=== PATIENT | female | born 1945 | race Caucasian/White ===

== ENCOUNTER 2020-03-23 07:44 | Outpatient (CLI) | payer MEDICARE, SELFPAY ==
[2020-03-23 08:15] LABS: Anion Gap 11 mmol/L (8-16); Blood Urea Nitrogen 17 mg/dL (7-17); Calcium 9.3 mg/dL (8.4-10.2); Carbon Dioxide 26 mmol/L (22-30); Chloride 94 mmol/L (98-107); Estimated Glomerular Filt Rate 54; Glucose 101 mg/dL (65-105); Potassium 3.9 mmol/L (3.4-5.0); Sodium 131 mmol/L (137-145)
== END 2020-03-23 07:45 | disposition home or self-care (01) ==
LOC: ANHLAB 07:47
PROVIDERS: PCP Family Medicine; Visit Provider Physician Assistant
DX: E87.1 Hypo-osmolality and hyponatremia (principal)
CPT/HCPCS: 36415; 80048

== ENCOUNTER 2020-04-10 12:49 | Outpatient (CLI) | payer MEDICARE, SELFPAY ==
--- NOTE | ~2020-04-10 | DEXA_ITS ---
Bone Density Report Name: Jessy Martines Age: 74 Sex: Female Ethnicity: White Date of : 1945 Indication: monitoring treatment; parental hip fracture; height loss; prior fracture; Referring Provider: Marito Couch Study: Bone densitometry was performed. Exam Date: April 10, 2020 Accession number: [id number] Bone Density: Region BMD T-score Z-score Classification AP Spine (L1, L3) 1.066 0.5 2.9 Normal Femoral Neck (Left) 0.670 -1.6 0.5 Osteopenia Total Hip (Left) 0.883 -0.5 1.4 Normal Total Hip Bilateral Avg 0.905 -0.3 1.6 Normal Femoral Neck (Right) 0.734 -1.0 1.1 Normal Total Hip (Right) 0.925 -0.1 1.7 Normal World Health Organization criteria for BMD impression classify patients as: Normal (T-score at or above -1.0), Osteopenia (T-score between -1.0 and -2.5), or Osteoporosis (T-score at or below -2.5). 10-year Fracture Risk: FRAX not reported because: Treated for osteoporosis Previous Exams: Region Exam Age BMD T-score BMD Change BMD Change Date g/cm2 vs Baseline vs Previous AP Spine(L1, L3) 04/10/2020 74 1.066 0.5 0.068(6.8%)* 0.139(14.9%)# 11/10/2017 72 0.928 -0.8 -0.071(-7.1%)# -0.071(-7.1%)# 10/15/2012 67 0.999 -0.1 Total Hip(Left) 04/10/2020 74 0.883 -0.5 0.064(7.8%)* 0.016(1.8%)# 11/10/2017 72 0.867 -0.6 0.048(5.9%)# 0.048(5.9%)10/15/2012 67 0.819 -1.0 Total Hip(Right) 04/10/2020 74 0.925 -0.1 0.105(12.8%)* 0.047(5.3%)11/10/2017 72 0.879 -0.5 0.059(7.1%)# 0.059(7.1%)10/15/2012 67 0.820 -1.0 *Denotes significance at 95% confidence level, LSC for AP Spine = 0.022 g/cm2, LSC for Total Hip = 0.027 g/cm2 Clinical Information Provided by Patient: Has had a low trauma fracture Parent has had a hip fracture Is being treated for osteoporosis Has used the following medications: Boniva (i.e. ibandronate), Vitamin D, Calcium Patient maximum height was 66 Menopause Age: 43 Drinks caffeinated beverages Onset of menses at age 11 Number of children 2 Impression: The patient has low bone mass, based on the Left Femoral Neck T-score. The patient has risk factors, including: parental hip fracture, previous fracture. No significant bone loss was observed. Discussion: PATIENT UNDER TREATMENT WITH NO SIGNIFICANT BMD LOSS SINCE LAST EXAM. In an untreated patient, BMD typically declines with age. A lack of decline or gain is usually a sign that treatment is efficacious an
== END 2020-04-10 12:50 | disposition home or self-care (01) ==
PROVIDERS: PCP Family Medicine; Visit Provider Family Medicine
DX: Z78.0 Asymptomatic menopausal state (principal); M85.852 Other specified disorders of bone density and structure, left thigh
CPT/HCPCS: 77080

== ENCOUNTER 2020-09-11 07:28 | Outpatient (CLI) | payer MEDICARE, SELFPAY ==
[2020-09-11 07:58] LABS: Hemoglobin 12.4 g/dL (12.0-15.0); Mean Corpuscular HGB Conc 34.4 g/dl (32-36); Mean Corpuscular Hemoglobin 30.4 pg (26-34); Mean Corpuscular Volume 88.2 fl (80-100); Platelet Count Result 339 k/mm3 (150-375); Red Blood Count 4.08 M/mm3 (4.2-5.4); Red Cell Distribution Width 12.5 % (11.5-14.5); White Blood Count 7.2 K/mm3 (4.5-10.0)
[2020-09-11 08:02] LABS: Add Urine Microscopic? YES; Appearance Urine Clear (Clear); Bacteria Urine 2+ /hpf; Bilirubin Urine Negative (Negative); Blood Urine Negative (Negative); Color Urine Straw (Yellow); Glucose Urine UA Negative (Negative); Ketones Urine Negative (Negative); Leukocyte Esterase Ur 1+ LEU/UL (NEGATIVE); Mucus Urine Rare /lpf; Nitrate Urine Negative (Negative); Protein Urine Negative (Negative); RBC Urine 0-2 /hpf (0-2); Specific Grav Ur 1.009 (1.001-1.035); Squamous Epithelial Cell Urine Moderate /hpf (Few); Urobilinogen Urine Negative mg/dL (<2.0)
[2020-09-11 08:11] LABS: Alanine Aminotransferase 28 U/L (4-35); Albumin Level 4.2 g/dL (3.5-5.1); Alkaline Phosphatase 57 U/L (38-126); Anion Gap 8 mmol/L (8-16); Aspartate Amino Transferase 29 U/L (14-36); Bilirubin,Total 0.5 mg/dL (0.2-1.3); Blood Urea Nitrogen 24 mg/dL (7-17); Calcium 9.7 mg/dL (8.4-10.2); Carbon Dioxide 29 mmol/L (22-30); Chloride 96 mmol/L (98-107); Cholesterol 167 mg/dL (0-200); Estimated Glomerular Filt Rate 54; Glucose 119 mg/dL (65-105); HDL Direct 56 mg/dL; Sodium 133 mmol/L (137-145); Triglycerides 140 mg/dL (<150)
[2020-09-11 08:25] LABS: LDL Cholesterol Direct 91 mg/dL
[2020-09-11 08:41] LABS: Thyroid Stimulating Hormone 0.883 uIU/mL (0.465-4.680)
== END 2020-09-11 07:29 | disposition home or self-care (01) ==
PROVIDERS: PCP Family Medicine; Visit Provider Family Medicine
DX: I10 Essential (primary) hypertension (principal); E78.2 Mixed hyperlipidemia
CPT/HCPCS: 36415; 80053; 80061; 81001; 84443; 85027

== ENCOUNTER 2020-11-15 07:53 | Outpatient (CLI) | payer MEDICARE, SELFPAY ==
[2020-11-15 09:41] LABS: Hemoglobin A1C 6.2 % (<5.7)
== END 2020-11-15 07:54 | disposition home or self-care (01) ==
PROVIDERS: PCP Family Medicine; Visit Provider Physician Assistant
DX: R73.01 Impaired fasting glucose (principal)
CPT/HCPCS: 36415; 83036

== ENCOUNTER 2021-04-09 08:37 | Outpatient (CLI) | payer MEDICARE, SELFPAY ==
[2021-04-09 08:55] LABS: Basophils Percent Auto 0.4 % (0.2-1.2); Eosinophils Absolute Auto 0.2 K/mm3 (0-0.3); Eosinophils Percent Auto 3.4 % (0-4.4); Hematocrit 36.7 % (37.0-47.0); Hemoglobin 12.5 g/dL (12.0-15.0); Immature Granulocyte Absolute 0.04 K/mm3 (0.00-0.031); Immature Granulocyte Percent A 0.6 % (0-0.5); Lymphocytes Absolute Auto 2.07 K/mm3 (0.9-3.2); Lymphocytes Percent Auto 30.4 % (18.3-44.2); Mean Corpuscular HGB Conc 34.1 g/dl (32-36); Mean Corpuscular Hemoglobin 30.4 pg (26-34); Mean Corpuscular Volume 89.3 fl (80-100); Mean Platelet Volume 8.3 fl (7.4-10.4); Monocytes Absolute Auto 0.6 K/mm3 (0.1-0.6); Monocytes Percent Auto 8.4 % (2.6-8.5); Neutrophils Absolute Auto 3.9 K/mm3 (1.3-6.7); Neutrophils Percent Auto 56.8 % (45.5-73.1); Platelet Count Result 354 k/mm3 (150-375); Red Blood Count 4.11 M/mm3 (4.2-5.4); Red Cell Distribution Width 12.7 % (11.5-14.5); White Blood Count 6.8 K/mm3 (4.5-10.0)
[2021-04-09 09:10] LABS: Alanine Aminotransferase 27 U/L (4-35); Albumin Level 4.6 g/dL (3.5-5.1); Alkaline Phosphatase 64 U/L (38-126); Anion Gap 11 mmol/L (8-16); Aspartate Amino Transferase 33 U/L (14-36); Bilirubin,Total 0.5 mg/dL (0.2-1.3); Blood Urea Nitrogen 21 mg/dL (7-17); Carbon Dioxide 25 mmol/L (22-30); Chloride 89 mmol/L (98-107); Estimated Glomerular Filt Rate 54; Glucose 103 mg/dL (65-110); Potassium 3.9 mmol/L (3.4-5.0); Sodium 125 mmol/L (137-145)
[2021-04-09 09:36] LABS: Hemoglobin A1C 6.2 % (<5.7)
[2021-04-09 09:52] LABS: Iron 104 ug/dL (37-170)
[2021-04-09 10:02] LABS: Percent Iron Saturation 28 % (20-50)
== END 2021-04-09 08:38 | disposition home or self-care (01) ==
PROVIDERS: PCP Family Medicine; Visit Provider Physician Assistant
DX: D50.9 Iron deficiency anemia, unspecified (principal); R73.01 Impaired fasting glucose; I10 Essential (primary) hypertension
CPT/HCPCS: 36415; 80053; 82728; 83036; 83540; 83550; 85025

== ENCOUNTER 2021-06-11 09:04 | Outpatient (CLI) | payer MEDICARE, SELFPAY ==
[2021-06-11 10:33] LABS: Anion Gap 10 mmol/L (8-16); Blood Urea Nitrogen 25 mg/dL (7-17); Calcium 10.5 mg/dL (8.4-10.2); Carbon Dioxide 27 mmol/L (22-30); Chloride 94 mmol/L (98-107); Estimated Glomerular Filt Rate 48; Glucose 95 mg/dL (65-110); Potassium 4.5 mmol/L (3.4-5.0); Sodium 131 mmol/L (137-145)
== END 2021-06-11 09:05 | disposition home or self-care (01) ==
PROVIDERS: PCP Family Medicine; Visit Provider Physician Assistant
DX: E87.1 Hypo-osmolality and hyponatremia (principal)
CPT/HCPCS: 36415; 80048

== ENCOUNTER 2021-07-22 08:34 | Outpatient (CLI) | payer MEDICARE, SELFPAY ==
[2021-07-22 09:37] LABS: Anion Gap 11 mmol/L (8-16); Blood Urea Nitrogen 25 mg/dL (7-17); Carbon Dioxide 26 mmol/L (22-30); Chloride 94 mmol/L (98-107); Estimated Glomerular Filt Rate 54; Glucose 97 mg/dL (65-110); Potassium 3.7 mmol/L (3.4-5.0); Sodium 131 mmol/L (137-145)
== END 2021-07-22 08:35 | disposition home or self-care (01) ==
PROVIDERS: PCP Family Medicine; Visit Provider Physician Assistant
DX: E83.52 Hypercalcemia (principal); E87.1 Hypo-osmolality and hyponatremia
CPT/HCPCS: 36415; 80048

== ENCOUNTER 2021-10-29 07:20 | Outpatient (CLI) | payer MEDICARE, SELFPAY ==
[2021-10-29 07:57] LABS: Basophils Percent Auto 0.6 % (0.2-1.2); Eosinophils Absolute Auto 0.3 K/mm3 (0-0.3); Eosinophils Percent Auto 4.1 % (0-4.4); Hematocrit 37.8 % (37.0-47.0); Immature Granulocyte Absolute 0.04 K/mm3 (0.00-0.031); Immature Granulocyte Percent A 0.6 % (0-0.5); Lymphocytes Absolute Auto 2.25 K/mm3 (0.9-3.2); Lymphocytes Percent Auto 34.4 % (18.3-44.2); Mean Corpuscular HGB Conc 34.4 g/dl (32-36); Mean Corpuscular Hemoglobin 30.5 pg (26-34); Mean Corpuscular Volume 88.7 fl (80-100); Mean Platelet Volume 8.7 fl (7.4-10.4); Monocytes Absolute Auto 0.5 K/mm3 (0.1-0.6); Monocytes Percent Auto 8.1 % (2.6-8.5); Neutrophils Absolute Auto 3.4 K/mm3 (1.3-6.7); Neutrophils Percent Auto 52.2 % (45.5-73.1); Platelet Count Result 360 k/mm3 (150-375); Red Blood Count 4.26 M/mm3 (4.2-5.4); Red Cell Distribution Width 12.6 % (11.5-14.5); White Blood Count 6.5 K/mm3 (4.5-10.0)
[2021-10-29 08:06] LABS: Add Urine Microscopic? YES; Appearance Urine Clear (Clear); Bilirubin Urine Negative (Negative); Blood Urine Negative (Negative); Color Urine Yellow (Yellow); Glucose Urine UA Negative (Negative); Ketones Urine Negative (Negative); Leukocyte Esterase Ur Trace LEU/UL (NEGATIVE); Nitrate Urine Negative (Negative); Protein Urine Negative (Negative); RBC Urine 0-2 /hpf (0-2); Specific Grav Ur 1.011 (1.001-1.035); Squamous Epithelial Cell Urine Few /hpf (Few); Urobilinogen Urine Negative mg/dL (<2.0); WBC Urine 0-3 /hpf (0-3)
[2021-10-29 08:09] LABS: Alanine Aminotransferase 27 U/L (4-35); Albumin Level 4.5 g/dL (3.5-5.1); Alkaline Phosphatase 64 U/L (38-126); Anion Gap 9 mmol/L (8-16); Aspartate Amino Transferase 36 U/L (14-36); Bilirubin,Total 0.6 mg/dL (0.2-1.3); Blood Urea Nitrogen 21 mg/dL (7-17); Calcium 9.4 mg/dL (8.4-10.2); Carbon Dioxide 27 mmol/L (22-30); Chloride 95 mmol/L (98-107); Cholesterol 165 mg/dL (0-200); Estimated Glomerular Filt Rate 54; Glucose 98 mg/dL (65-110); HDL Direct 62 mg/dL; Potassium 4.1 mmol/L (3.4-5.0); Sodium 131 mmol/L (137-145); Triglycerides 82 mg/dL (<150)
[2021-10-29 08:12] LABS: Iron 110 ug/dL (37-170)
[2021-10-29 08:12] LABS: Hemoglobin A1C 5.7 % (<5.7)
[2021-10-29 08:20] LABS: LDL Cholesterol Direct 69 mg/dL
[2021-10-29 08:21] LABS: Percent Iron Saturation 28 % (20-50)
== END 2021-10-29 07:21 | disposition home or self-care (01) ==
PROVIDERS: PCP Family Medicine; Visit Provider Physician Assistant
DX: D50.9 Iron deficiency anemia, unspecified (principal); R73.01 Impaired fasting glucose; M85.80 Other specified disorders of bone density and structure, unspecified site; K21.9 Gastro-esophageal reflux disease without esophagitis; E78.5 Hyperlipidemia, unspecified; I10 Essential (primary) hypertension
CPT/HCPCS: 36415; 80053; 80061; 81001; 82728; 83036; 83540; 83550; 84443; 85025

== ENCOUNTER 2022-04-16 08:36 | Outpatient (CLI) | payer MEDICARE, SELFPAY ==
[2022-04-16 19:03] LABS: Alanine Aminotransferase 28 U/L (6-35); Alkaline Phosphatase 64 U/L (38-126); Anion Gap 16 mmol/L (8-16); Aspartate Amino Transferase 28 U/L (14-36); Bilirubin,Total 0.5 mg/dL (0.2-1.3); Blood Urea Nitrogen 24 mg/dL (7-17); Calcium 9.8 mg/dL (8.4-10.2); Carbon Dioxide 24 mmol/L (22-30); Chloride 92 mmol/L (98-107); Estimated Glomerular Filt Rate 43; Glucose 104 mg/dL (65-110); Potassium 4.6 mmol/L (3.4-5.0); Sodium 132 mmol/L (137-145)
[2022-04-16 19:44] LABS: Hemoglobin A1C 5.8 % (<5.7)
== END 2022-04-16 08:37 | disposition home or self-care (01) ==
PROVIDERS: PCP Family Medicine; Visit Provider Physician Assistant
DX: R73.01 Impaired fasting glucose (principal); I10 Essential (primary) hypertension; R82.90 Unspecified abnormal findings in urine
CPT/HCPCS: 36415; 80053; 83036; 87086; 87088

== ENCOUNTER → 2022-06-30 15:35 | Outpatient (CLI) | payer MEDICARE, SELFPAY ==
--- NOTE | ~2022-06-30 | DEXA_ITS ---
Bone Density Report Name: EDILSON MENDOZA Age: 76 Sex: Female Ethnicity: White Date of : 1945 Indication: osteopenia; parental hip fracture; height loss; prior fracture; postmenopausal Referring Provider: ROBERT ENAMORADO Study: Bone densitometry was performed. Exam Date: June 30, 2022 Accession number: [id number] There is hypertrophic degenerative change of the lumbar spine, which results in higher than expected spine bone mineral density measurements. These spine BMD and T score and Z score measurements are not reflective of the patient's true general bone mineral density. Bone Density: Region BMD T-score Z-score Classification AP Spine (L1-L4) 1.180 1.2 3.8 Normal Femoral Neck (Left) 0.670 -1.6 0.6 Osteopenia Total Hip (Left) 0.845 -0.8 1.2 Normal Femoral Neck (Right) 0.735 -1.0 1.2 Normal Total Hip (Right) 0.888 -0.4 1.5 Normal Total Hip Mean 0.867 -0.6 1.4 Normal World Health Organization criteria for BMD impression classify patients as: Normal (T-score at or above -1.0), Osteopenia (T-score between -1.0 and -2.5), or Osteoporosis (T-score at or below -2.5). 10-year Fracture Risk(1): Major Osteoporotic Fracture 31% Hip Fracture 17% Reported Risk Factors: [place] (), Neck BMD=0.670, BMI=30.4, previous fracture, parental fracture (1) FRAX(R) Version 3.08. Fracture probability calculated for an untreated patient. Fracture probability may be lower if the patient has received treatment. Previous Exams: Region Exam Age BMD T-score BMD Change BMD Change Date g/cm2 vs Baseline vs Previous AP Spine(L1-L4) 06/30/2022 76 1.180 1.2 0.266* 0.266* 09/17/2007 61 0.915 -1.2 Total Hip(Left) 06/30/2022 76 0.845 -0.8 0.046* 0.046* 09/17/2007 61 0.799 -1.2 Total Hip(Right) 06/30/2022 76 0.888 -0.4 0.073* 0.073* 09/17/2007 61 0.814 -1.0 *Denotes significance at 95% confidence level, LSC for AP Spine = 0.022 g/cm2, LSC for Total Hip = 0.027 g/cm2 Clinical Information Provided by Patient: Has had a low trauma fracture Parent has had a hip fracture Has used the following medications: Calcium, MTV Patient maximum height was 66.0 Menopause Age: 43 No regular weight bearing exercise Drinks caffeinated beverages Onset of menses at age 9 Number of children 2 Impression: The patient has low bone mass, based on the Left Femoral Neck T-score. The patient has a
== END ==
PROVIDERS: PCP Family Medicine; Visit Provider Physician Assistant
DX: M81.0 Age-related osteoporosis without current pathological fracture (principal); M85.852 Other specified disorders of bone density and structure, left thigh
CPT/HCPCS: 77080

== ENCOUNTER 2022-07-17 12:25 | Outpatient (CLI) | payer MEDICARE, SELFPAY ==
--- NOTE | ~2022-07-17 | US_ITS ---
US soft tissue head and neck 07/17/2022 13:40 Indication: Localized swelling of the left forehead Procedure: High-resolution Limited ultrasound of the left forehead Comparison: No prior studies for comparison. Findings: Normal heterogeneous soft tissues without focal solid or cystic mass. There is contour irre gularity to the underlying skull which may account for the palpable finding. Impression: 1: Normal soft tissues of the left forehead in the area of palpable concern without discrete mass. 2: Contour irregularity to the underlying skull at the area of palpable concern which likely account s for the clinical finding. Consider correlation with CT. Reviewed, dictated and finalized at location A. CTURAL ENGINEER Impression: 1: Normal soft tissues of the left forehead in the area of palpable concern wit hout discrete mass. 2: Contour irregularity to the underlying skull at the area of palpable concer n which likely accounts for the clinical finding. Consider correlation with CT.
== END 2022-07-17 12:26 | disposition home or self-care (01) ==
PROVIDERS: PCP Family Medicine; Visit Provider Physician Assistant
DX: R22.0 Localized swelling, mass and lump, head (principal)
CPT/HCPCS: 76536

== ENCOUNTER 2022-08-20 13:00 | Outpatient (CLI) | payer MEDICARE, SELFPAY ==
--- NOTE | ~2022-08-20 | CT_ITS ---
EXAMINATION: CT brain wo con DATE: 08/20/2022 13:20 INDICATION: Forehead lump, left side. Trauma 6 weeks ago. TECHNIQUE: Computed tomography (CT) of the head was performed without intravenous contrast. The mA wa s adjusted according to patient size. Iterative reconstruction technique was employed. Exam dose: 60 5.33 mGy-cm total exam DLP. COMPARISON: 06/06/2019 CT brain FINDINGS: Stable approximately 4 x 7 mm lucent skull lesion high over the parietal convexity on the left parasa gittal area, stable since 06/06/2019. Stable approximately 7.7 mm lucency of the right parasagittal frontal bone high over the convexity, u nchanged since 06/06/2019. 5.8 x 9.9 mm lucent lesion of the left parietal bone, there is measured 5 x 8.7 mm on 05/29/2019. Approximately 8 x 16 mm lytic lesion of the left frontal bone, with scalloping of the inner table and partial destruction of the outer table Differential diagnosis includes multiple myeloma and metastatic disease in this 76-year-old female. Included paranasal sinuses and mastoid air cells are normally developed and aerated. There is mildly prominent cerebral volume loss, involving particularly the frontal lobes. There is mi ld cerebellar volume loss. No intracranial mass lesion or hemorrhage, midline shift or mass effect effect is detected. Bilateral carotid siphon and vertebral artery calcifications. There is nonspecific diminished attenuation cere bral white matter, likely due to chronic small vessel ischemic changes. No subdural or epidural hematoma. IMPRESSION: Lytic skull lesions, involving particularly the left frontal area. Differential diagnosi s includes metastatic disease or multiple myeloma. Consider radionuclide bone scan and correlation wi serum protein electrophoresis. Cerebral atherosclerosis and chronic small vessel ischemic changes of cerebral white matter No acute intracranial finding Reviewed, dictated and finalized at [facility]. Reviewed, dictated and finalized at location A. R PHOTOVOLTAIC ELECTRICIAN IMPRESSION: Lytic skull lesions, involving particularly the left frontal area. Differential diagnosis includes metastatic disease or multiple myeloma. Consid er radionuclide bone scan and correlation with serum protein electrophoresis. Cerebral atherosclerosis and chronic small vessel ischemic changes of cerebral white matter No acute intracranial finding
== END 2022-08-20 13:01 | disposition home or self-care (01) ==
PROVIDERS: PCP Family Medicine; Visit Provider Physician Assistant
DX: R93.89 Abnormal findings on diagnostic imaging of other specified body structures (principal); I67.2 Cerebral atherosclerosis
CPT/HCPCS: 70450

== ENCOUNTER 2022-08-25 08:45 | Outpatient (NON) | payer MEDICARE, SELFPAY ==
[2022-08-30 01:19] LABS: Albumin 24 Hr Urine 21 %; Creatinine, 24 Hr Urine 1.23 g/24 h (0.50-2.15); Total Protein/Creatinine Ratio 122 mg/g creat (<150)
== END 2022-08-25 08:46 | disposition home or self-care (01) ==
LOC: ANHGOSHLAB 08:47
PROVIDERS: PCP Family Medicine; Visit Provider Physician Assistant
DX: M89.9 Disorder of bone, unspecified (principal)
CPT/HCPCS: 81050; 82570; 84156; 84166

== ENCOUNTER 2022-08-27 07:22 | Outpatient (CLI) | payer MEDICARE, SELFPAY ==
--- NOTE | ~2022-08-27 | NM_ITS ---
EXAMINATION: NM bone scan whole body DATE: 08/27/2022 15:39 INDICATION: Lytic bone lesion TECHNIQUE: 25.7 mCi Tc-99m HDP was administered intravenously. Delayed whole-body scintigrams were o btained. COMPARISON: Head CT date FINDINGS: There is moderate increased uptake associated with the previously noted lytic left frontal calvarial lesion. Typical pattern of degenerative joint centered uptake at the bilateral acromioclavicular and sternoclavicular joints, bilateral knees, feet and at the radial aspect of the carpi, right greater [place] left. There foci of mild uptake along the spine, and cervical spine corresponding to multilevel s evere degenerative disc disease and facet osteoarthritis on CT dated 06/06/2019. Additional foci of m ild increased uptake in the region of the lumbar spine is also a typical distribution for degenerativ e disc and facet disease however there is no other prior imaging for comparison. No other suspicious foci of abnormal bone uptake in atypical locations to suggest more widespread metastatic disease. IMPRESSION: 1. Increased uptake associated with an indeterminate slowly growing left frontal lytic calvarial lesi on which is increased slightly in size over the course of greater than 3 years between 06/06/2019 and 08/20/2022. 2. No other lesions in atypical locations suspicious for metastatic disease. Reviewed, dictated and finalized at location A. BLASTER IMPRESSION: 1. Increased uptake associated with an indeterminate slowly growing left fronta l lytic calvarial lesion which is increased slightly in size over the course of greater than 3 years between 06/06/2019 and 08/20/2022. 2. No other lesions in atypical locations suspicious for metastatic disease.
== END 2022-08-27 07:23 | disposition home or self-care (01) ==
PROVIDERS: PCP Family Medicine; Visit Provider Physician Assistant
DX: M89.9 Disorder of bone, unspecified (principal)
CPT/HCPCS: 78306; A9503

== ENCOUNTER 2022-09-10 07:09 | Outpatient (CLI) | payer MEDICARE, SELFPAY ==
--- NOTE | ~2022-09-10 | XR_ITS ---
EXAMINATION: XR bone survey comp/metastic DATE: 09/10/2022 10:40 INDICATION: Plasma cell disorder. TECHNIQUE: 29 views from a skeletal survey were obtained. COMPARISON: Head CT 08/20/2022, 06/06/19, bone scan 08/27/22 FINDINGS: There is a large hiatal hernia. There is mild atelectasis in left lower lung zone. There is a lytic lesion in left frontal bone that worsened between 06/06/2019 and 08/20/22. On CT, the lesion is expansile with calcified matrix. Activity was increased on bone scan. There are approximately 3 st able small lytic lesions in the skull, likely benign. There is plate and screw fixation of distal lef t radius. IMPRESSION: 1. Lytic lesion of the skull with mild worsening from 06/06/2019. The differential diagnosis is heade d by hemangioma and fibrous dysplasia. Reviewed, dictated and finalized at location A. ONNEL QUALITY ASSURANCE AUDITOR IMPRESSION: 1. Lytic lesion of the skull with mild worsening from 06/06/2019. The different ial diagnosis is headed by hemangioma and fibrous dysplasia.
== END 2022-09-10 07:10 | disposition home or self-care (01) ==
LOC: ANHIMG 07:14
PROVIDERS: PCP Family Medicine; Visit Provider Internal Medicine Hematology & Oncology
DX: D72.9 Disorder of white blood cells, unspecified (principal)
CPT/HCPCS: 77075

== ENCOUNTER 2022-09-10 08:43 | Outpatient (CLI) | payer MEDICARE, SELFPAY ==
[2022-09-10 20:06] LABS: Alanine Aminotransferase 28 U/L (6-35); Albumin Level 4.5 g/dL (3.5-5.1); Alkaline Phosphatase 76 U/L (38-126); Anion Gap 11 mmol/L (8-16); Aspartate Amino Transferase 40 U/L (14-36); Bilirubin,Total 0.6 mg/dL (0.2-1.3); Blood Urea Nitrogen 25 mg/dL (7-17); Calcium 10.2 mg/dL (8.4-10.2); Carbon Dioxide 29 mmol/L (22-30); Chloride 95 mmol/L (98-107); Estimated Glomerular Filt Rate 54; Glucose 73 mg/dL (65-110); Potassium 4.1 mmol/L (3.4-5.0); Sodium 135 mmol/L (137-145)
[2022-09-10 20:44] LABS: Immunoglobulin A 211 mg/dL (70-400); Immunoglobulin G 844 mg/dL (700-1600); Immunoglobulin M 95 mg/dL (40-230)
[2022-09-10 20:49] LABS: Basophils Percent Auto 0.5 % (0.2-1.2); Eosinophils Absolute Auto 0.3 K/mm3 (0-0.3); Eosinophils Percent Auto 3.7 % (0-4.4); Hematocrit 39.1 % (37.0-47.0); Hemoglobin 12.8 g/dL (12.0-15.0); Immature Granulocyte Absolute 0.11 K/mm3 (0.00-0.031); Immature Granulocyte Percent A 1.5 % (0-0.5); Lymphocytes Absolute Auto 2.07 K/mm3 (0.9-3.2); Lymphocytes Percent Auto 27.6 % (18.3-44.2); Mean Corpuscular HGB Conc 32.7 g/dl (32-36); Mean Corpuscular Hemoglobin 30.3 pg (26-34); Mean Corpuscular Volume 92.7 fl (80-100); Mean Platelet Volume 9.7 fl (7.4-10.4); Monocytes Absolute Auto 0.6 K/mm3 (0.1-0.6); Monocytes Percent Auto 8.3 % (2.6-8.5); Neutrophils Absolute Auto 4.4 K/mm3 (1.3-6.7); Neutrophils Percent Auto 58.4 % (45.5-73.1); Platelet Count Result 420 k/mm3 (150-375); Red Blood Count 4.22 M/mm3 (4.2-5.4); Red Cell Distribution Width 13.1 % (11.5-14.5); White Blood Count 7.5 K/mm3 (4.5-10.0)
[2022-09-13 06:07] LABS: Kappa\\Lambda Light Chains 1.24 (0.26-1.65); Lambda Light Chain 16.4 mg/L (5.7-26.3)
[2022-09-13 20:12] LABS: Albumin 4.5 g/dL (3.8-4.8); Alpha 1 Globulin 0.3 g/dL (0.2-0.3); Alpha 2 Globulin 0.7 g/dL (0.5-0.9); Beta 1 Globulin 0.6 g/dL (0.4-0.6); Gamma Globulin 0.9 g/dL (0.8-1.7); Protein, Total 7.4 g/dL (6.1-8.1)
== END 2022-09-10 08:44 | disposition home or self-care (01) ==
LOC: ANHGOSHLAB 08:45
PROVIDERS: PCP Family Medicine; Visit Provider Internal Medicine Hematology & Oncology
DX: D72.9 Disorder of white blood cells, unspecified (principal)
CPT/HCPCS: 36415; 77075; 80053; 82784; 83883; 84155; 84165; 85025

== ENCOUNTER 2023-01-07 08:32 | Outpatient (CLI) | payer MEDICARE, SELFPAY ==
[2023-01-07 15:09] LABS: Basophils Percent Auto 0.5 % (0.2-1.2); Eosinophils Absolute Auto 0.2 K/mm3 (0-0.3); Eosinophils Percent Auto 3.8 % (0-4.4); Hematocrit 38.6 % (37.0-47.0); Hemoglobin 12.7 g/dL (12.0-15.0); Immature Granulocyte Absolute 0.03 K/mm3 (0.00-0.031); Immature Granulocyte Percent A 0.5 % (0-0.5); Lymphocytes Absolute Auto 1.83 K/mm3 (0.9-3.2); Lymphocytes Percent Auto 30.2 % (18.3-44.2); Mean Corpuscular HGB Conc 32.9 g/dl (32-36); Mean Corpuscular Hemoglobin 29.5 pg (26-34); Mean Corpuscular Volume 89.6 fl (80-100); Mean Platelet Volume 9.7 fl (7.4-10.4); Monocytes Absolute Auto 0.5 K/mm3 (0.1-0.6); Monocytes Percent Auto 8.8 % (2.6-8.5); Neutrophils Absolute Auto 3.4 K/mm3 (1.3-6.7); Neutrophils Percent Auto 56.2 % (45.5-73.1); Platelet Count Result 414 k/mm3 (150-375); Red Blood Count 4.31 M/mm3 (4.2-5.4); Red Cell Distribution Width 12.9 % (11.5-14.5); White Blood Count 6.1 K/mm3 (4.5-10.0)
[2023-01-07 15:40] LABS: Appearance Urine Clear (Clear); Bacteria Urine None Seen /hpf; Bilirubin Urine Negative (Negative); Blood Urine Negative (Negative); Color Urine Yellow (Yellow); Glucose Urine UA Negative (Negative); Ketones Urine Negative (Negative); Leukocyte Esterase Ur 2+ LEU/UL (NEGATIVE); Need Manual Microscopic Reviewed; Nitrate Urine Negative (Negative); Non Pathogenic Casts 0-2; Protein Urine Negative (Negative); RBC Urine 0-2 /hpf (0-2); Specific Grav Ur 1.009 (1.001-1.035); Squamous Epithelial Cell Urine None seen /hpf (Few); Urobilinogen Urine 0.2 mg/dL (<2.0); WBC Urine 0-5 /hpf (0-3)
[2023-01-07 15:41] LABS: Add Urine Microscopic? YES
[2023-01-07 15:43] LABS: Hemoglobin A1C 6.1 % (<5.7)
[2023-01-07 17:19] LABS: LDL Cholesterol Direct 79 mg/dL
[2023-01-07 17:22] LABS: Alanine Aminotransferase 31 U/L (6-35); Albumin Level 4.7 g/dL (3.5-5.1); Alkaline Phosphatase 54 U/L (38-126); Anion Gap 8 mmol/L (8-16); Aspartate Amino Transferase 53 U/L (14-36); Bilirubin,Total 0.7 mg/dL (0.2-1.3); Blood Urea Nitrogen 28 mg/dL (7-17); Calcium 10.1 mg/dL (8.4-10.2); Carbon Dioxide 29 mmol/L (22-30); Chloride 94 mmol/L (98-107); Cholesterol 165 mg/dL (0-200); Estimated Glomerular Filt Rate 53; Glucose 89 mg/dL (65-110); HDL Direct 61 mg/dL; Potassium 4.1 mmol/L (3.4-5.0); Sodium 131 mmol/L (137-145); Triglycerides 157 mg/dL (<150)
[2023-01-07 17:36] LABS: Thyroid Stimulating Hormone 0.738 uIU/mL (0.465-4.680)
[2023-01-07 19:28] LABS: Vitamin D 25 Hydroxy 52.6 ng/mL
[2023-01-07 23:30] LABS: Iron 114 ug/dL (37-170)
[2023-01-07 23:34] LABS: Percent Iron Saturation 29 % (20-50)
== END 2023-01-07 08:33 | disposition home or self-care (01) ==
LOC: ANHGOSHLAB 08:33
PROVIDERS: PCP Family Medicine; Visit Provider Physician Assistant
DX: Z00.00 Encounter for general adult medical examination without abnormal findings (principal); D50.9 Iron deficiency anemia, unspecified; E78.5 Hyperlipidemia, unspecified; I10 Essential (primary) hypertension; M85.80 Other specified disorders of bone density and structure, unspecified site; R73.01 Impaired fasting glucose
CPT/HCPCS: 36415; 80053; 80061; 81001; 82306; 82728; 83036; 83540; 83550; 84443; 85025

== ENCOUNTER 2023-07-08 08:05 | Outpatient (CLI) | payer MEDICARE, SELFPAY ==
[2023-07-08 14:21] LABS: Basophils Percent Auto 0.6 % (0.2-1.2); Eosinophils Absolute Auto 0.2 K/mm3 (0-0.3); Hematocrit 40.1 % (37.0-47.0); Hemoglobin 13.1 g/dL (12.0-15.0); Immature Granulocyte Absolute 0.05 K/mm3 (0.00-0.031); Immature Granulocyte Percent A 0.7 % (0-0.5); Lymphocytes Absolute Auto 2.28 K/mm3 (0.9-3.2); Lymphocytes Percent Auto 32.9 % (18.3-44.2); Mean Corpuscular HGB Conc 32.7 g/dl (32-36); Mean Corpuscular Hemoglobin 30.3 pg (26-34); Mean Corpuscular Volume 92.6 fl (80-100); Mean Platelet Volume 9.7 fl (7.4-10.4); Monocytes Absolute Auto 0.4 K/mm3 (0.1-0.6); Monocytes Percent Auto 6.3 % (2.6-8.5); Neutrophils Absolute Auto 3.9 K/mm3 (1.3-6.7); Neutrophils Percent Auto 56.5 % (45.5-73.1); Platelet Count Result 406 k/mm3 (150-375); Red Blood Count 4.33 M/mm3 (4.2-5.4); Red Cell Distribution Width 12.7 % (11.5-14.5); White Blood Count 6.9 K/mm3 (4.5-10.0)
[2023-07-08 14:41] LABS: Alanine Aminotransferase 28 U/L (6-35); Albumin Level 4.4 g/dL (3.5-5.1); Alkaline Phosphatase 60 U/L (38-126); Anion Gap 11 mmol/L (8-16); Aspartate Amino Transferase 35 U/L (14-36); Bilirubin,Total 0.6 mg/dL (0.2-1.3); Blood Urea Nitrogen 23 mg/dL (7-17); Carbon Dioxide 28 mmol/L (22-30); Chloride 92 mmol/L (98-107); Estimated Glomerular Filt Rate 48; Glucose 139 mg/dL (65-110); Potassium 3.8 mmol/L (3.4-5.0); Sodium 131 mmol/L (137-145)
== END 2023-07-08 08:06 | disposition home or self-care (01) ==
PROVIDERS: PCP Family Medicine; Visit Provider Physician Assistant
DX: R73.01 Impaired fasting glucose (principal); I10 Essential (primary) hypertension; D75.839 Thrombocytosis, unspecified
CPT/HCPCS: 36415; 80053; 83036; 85025

== ENCOUNTER 2023-11-16 07:57 | Outpatient (CLI) | payer MEDICARE, SELFPAY ==
[2023-11-16 20:39] LABS: Basophils Percent Auto 0.5 % (0.2-1.2); Eosinophils Absolute Auto 0.2 K/mm3 (0-0.3); Eosinophils Percent Auto 3.6 % (0-4.4); Hematocrit 39.9 % (37.0-47.0); Hemoglobin 12.7 g/dL (12.0-15.0); Immature Granulocyte Absolute 0.02 K/mm3 (0.00-0.031); Immature Granulocyte Percent A 0.3 % (0-0.5); Lymphocytes Absolute Auto 1.93 K/mm3 (0.9-3.2); Lymphocytes Percent Auto 33.4 % (18.3-44.2); Mean Corpuscular HGB Conc 31.8 g/dl (32-36); Mean Corpuscular Volume 94.1 fl (80-100); Mean Platelet Volume 9.9 fl (7.4-10.4); Monocytes Absolute Auto 0.4 K/mm3 (0.1-0.6); Monocytes Percent Auto 7.6 % (2.6-8.5); Neutrophils Absolute Auto 3.2 K/mm3 (1.3-6.7); Neutrophils Percent Auto 54.6 % (45.5-73.1); Platelet Count Result 440 k/mm3 (150-375); Red Blood Count 4.24 M/mm3 (4.2-5.4); Red Cell Distribution Width 13.5 % (11.5-14.5); White Blood Count 5.8 K/mm3 (4.5-10.0)
[2023-11-16 20:46] LABS: Vitamin D 25 Hydroxy 88.7 ng/mL
[2023-11-16 21:02] LABS: Appearance Urine Cloudy (Clear); Bacteria Urine 1+ /hpf; Bilirubin Urine Negative (Negative); Blood Urine Negative (Negative); Color Urine Yellow (Yellow); Glucose Urine UA Negative (Negative); Ketones Urine Negative (Negative); Leukocyte Esterase Ur 3+ LEU/UL (Negative); Need Manual Microscopic Reviewed; Nitrate Urine Negative (Negative); Protein Urine Negative (Negative); RBC Urine 0-2 /hpf (0-2); Specific Grav Ur 1.016 (1.001-1.035); Squamous Epithelial Cell Urine Moderate /hpf (Few)
[2023-11-16 21:10] LABS: Add Urine Microscopic? YES
[2023-11-16 21:58] LABS: Alanine Aminotransferase 35 U/L (6-35); Albumin Level 4.6 g/dL (3.5-5.1); Alkaline Phosphatase 54 U/L (38-126); Anion Gap 9 mmol/L (4-12); Aspartate Amino Transferase 46 U/L (14-36); Bilirubin,Total 0.8 mg/dL (0.2-1.3); Blood Urea Nitrogen 23 mg/dL (7-17); Calcium 10.4 mg/dL (8.4-10.2); Carbon Dioxide 28 mmol/L (22-30); Chloride 96 mmol/L (98-107); Cholesterol 159 mg/dL (0-200); Estimated Glomerular Filt Rate 53; Glucose 89 mg/dL (65-110); HDL Direct 59 mg/dL; Sodium 133 mmol/L (137-145); Triglycerides 103 mg/dL (<150)
[2023-11-16 22:08] LABS: LDL Cholesterol Direct 82 mg/dL
[2023-11-16 22:25] LABS: Thyroid Stimulating Hormone 0.806 uIU/mL (0.465-4.680)
[2023-11-16 23:38] LABS: Hemoglobin A1C 5.9 % (<5.7)
== END 2023-11-16 07:58 | disposition home or self-care (01) ==
LOC: ANHGOSHLAB 07:58
PROVIDERS: PCP Family Medicine; Visit Provider Physician Assistant
DX: D50.9 Iron deficiency anemia, unspecified (principal); I10 Essential (primary) hypertension; D75.839 Thrombocytosis, unspecified; E55.9 Vitamin D deficiency, unspecified; E78.5 Hyperlipidemia, unspecified; R73.01 Impaired fasting glucose
CPT/HCPCS: 36415; 80053; 80061; 81001; 82306; 83036; 84443; 85025

== ENCOUNTER 2024-05-04 08:01 | Outpatient (CLI) | payer MEDICARE, SELFPAY ==
[2024-05-04 14:23] LABS: Alanine Aminotransferase 21 U/L (6-35); Albumin Level 4.5 g/dL (3.5-5.1); Alkaline Phosphatase 58 U/L (38-126); Anion Gap 9 mmol/L (4-12); Aspartate Amino Transferase 62 U/L (14-36); Bilirubin,Total 0.6 mg/dL (0.2-1.3); Blood Urea Nitrogen 27 mg/dL (7-17); Calcium 9.8 mg/dL (8.4-10.2); Carbon Dioxide 26 mmol/L (22-30); Chloride 95 mmol/L (98-107); Estimated Glomerular Filt Rate 48; Glucose 87 mg/dL (65-110); Sodium 130 mmol/L (137-145)
[2024-05-04 15:19] LABS: Hemoglobin A1C 6.2 % (<5.7)
== END 2024-05-04 08:02 | disposition home or self-care (01) ==
LOC: ANHGOSHLAB 08:03
PROVIDERS: PCP Family Medicine; Visit Provider Physician Assistant Medical
DX: R79.89 Other specified abnormal findings of blood chemistry (principal); I10 Essential (primary) hypertension; R73.01 Impaired fasting glucose
CPT/HCPCS: 36415; 80053; 83036

== ENCOUNTER 2024-11-22 08:00 | Outpatient (CLI) | payer MEDICARE, SELFPAY ==
--- OUTSIDE RECORDS SUMMARY | 2024-11-22 08:09 | XMS_ITS | Clinical Summary ---
Author Organization [facility] Aurelio Askew Address [address] [place] [address] Care Team Providers Care Document Control Assistant Name Role Phone Marito Couch MD Primary Care Provider [phone] Allergies No known active allergies Medications amLODIPine (NORVASC) 5 mg tablet Take 5 mg by mouth daily. 08/26/2022 Active fenofibrate micronized (LOFIBRA) 134 mg Capsule Take 134 mg by mouth daily. 08/26/2022 Active ferrous sulfate 325 mg (65 mg iron) tablet ferrous sulfate 325 mg (65 mg iron) tablet TK 1 T PO D Active hydroCHLOROthia zide 25 mg tablet Take 25 mg by mouth daily. 07/29/2022 Active latanoprost (XALATAN) 0.005 % solution 09/04/2022 Active lisinopriL (PRINIVIL) 40 mg tablet Take 40 mg by mouth daily. 08/19/2022 Active omeprazole (PriLOSEC) 20 mg Capsule, Delayed Release(E.C.) Take 20 mg by mouth daily. 06/21/2022 Active calcium carbonate + vitamin D (CALTRATE+D) 600 mg-10 mcg (400 unit) Tablet Take 2 Tablets by mouth. Active multivitamin (DAILY-EDDIE) tablet Take 1 Tablet by mouth daily. Active Active Problems No known active problems Family History Medical History Relation Name Comments Hypertension Daughter Heart Disease Father Pancreatic Cancer Father No Known Problems Mother Breast Cancer Paternal Cousin Arthritis Sister Diabetes Sister No Known Problems Son Relation Name Status Comments Daughter Alive Father Mother Paternal Cousin Sister Alive Son Alive Social History Tobacco Use Types Packs/Day Years Used Date Smoking Tobacco: Never Smokeless Tobacco: Never Tobacco Cessation:Counseling Given: Not Answered Alcohol Use Standard Drinks/Week Comments Yes 3 (1 standard drink = 0.6 oz pur e alcohol) Comments Unknown Sex and Gender Information Value Date Recorded Sex Assigned at Not on file Legal Sex Female 9:22 AM APARTMENT PROPERTY MANAGER Gender Identity Not on file Sexual Orientation Not on file Last Filed Vital Signs Vital Sign Reading Time Taken Comments Blood Pressure 151/81 09/09/2022 3:45 PM APARTMENT PROPERTY MANAGER Pulse 95 09/09/2022 3:38 PM APARTMENT PROPERTY MANAGER Temperature 36.8 C (98.2 F) 09/09/2022 3:38 PM APARTMENT PROPERTY MANAGER Respiratory Rate 16 09/09/2022 3:38 PM APARTMENT PROPERTY MANAGER Oxygen Saturation 97% 09/09/2022 3:38 PM APARTMENT PROPERTY MANAGER Inhaled Oxygen Concentration - - Weight 79.1 kg (174 lb 4.8 oz) 09/09/2022 3:38 P M APARTMENT PROPERTY MANAGER Height 160 cm (5' 3 ) 09/09/2022 3:38 PM APARTMENT PROPERTY MANAGER Body Mass Index 30.88 09/09/2022 3:38 PM APARTMENT PROPERTY MANAGER Plan of Treatment Health Maintenance Due Date Last Done Comments DTAP/TDAP/TD VACCINES (1 - Tdap) 10/11/1962 PNEUMOCOCCAL VACCINE 50+ YEARS (1 of 1 - PCV) 10/11/18 94 ZOSTER VACCINE (1 of 2) 10/11/1993 OSTEOPOROSIS SCREENING 10/11/2008 RSV VACCINE (60+ or ) (1 - 1-dose 75+ series) 10/11/2018 INFLUENZA VACCINE (#1) 2024 06/16/2017 Insurance [employer] CHOICE PPO MCR Care Teams Document Control Assistant Relationship Specialty Start Date End Date Marito Couch MD [address] [facility] [address] [place] [address] PCP - General Family Practice 09/09/22
[2024-11-22 11:10] LABS: Hematocrit 39.5 % (37.0-47.0); Hemoglobin 13.4 g/dL (12.0-15.0); Mean Corpuscular HGB Conc 33.9 g/dl (32-36); Mean Corpuscular Hemoglobin 30.5 pg (26-34); Mean Platelet Volume 9.4 fl (7.4-10.4); Platelet Count Result 384 k/mm3 (150-375); Red Blood Count 4.39 M/mm3 (4.2-5.4); Red Cell Distribution Width 12.3 % (11.5-14.5); White Blood Count 6.8 K/mm3 (4.5-10.0)
[2024-11-22 11:28] LABS: Alanine Aminotransferase 28 U/L (6-35); Albumin Level 4.7 g/dL (3.5-5.1); Alkaline Phosphatase 61 U/L (38-126); Anion Gap 12 mmol/L (4-12); Aspartate Amino Transferase 37 U/L (14-36); Bilirubin,Total 0.7 mg/dL (0.2-1.3); Blood Urea Nitrogen 23 mg/dL (7-17); Calcium 9.9 mg/dL (8.4-10.2); Carbon Dioxide 27 mmol/L (22-30); Chloride 90 mmol/L (98-107); Cholesterol 166 mg/dL (0-200); Estimated Glomerular Filt Rate 50; Glucose 88 mg/dL (65-110); HDL Direct 72 mg/dL; Potassium 4.1 mmol/L (3.4-5.0); Sodium 129 mmol/L (137-145); Triglycerides 94 mg/dL (<150)
[2024-11-22 11:36] LABS: Add Urine Microscopic? YES; Appearance Urine Clear (Clear); Bacteria Urine None Seen /hpf; Bilirubin Urine Negative (Negative); Blood Urine Negative (Negative); Color Urine Yellow (Yellow); Glucose Urine UA Negative (Negative); Ketones Urine Negative (Negative); Leukocyte Esterase Ur 2+ LEU/UL (Negative); Nitrate Urine Negative (Negative); Non Pathogenic Casts 0-2; Protein Urine Negative (Negative); RBC Urine 0-2 /hpf (0-2); Squamous Epithelial Cell Urine None Seen /hpf (Few); Urobilinogen Urine 0.2 mg/dL (<2.0); WBC Urine 0-5 /hpf (0-3)
[2024-11-22 11:39] LABS: LDL Cholesterol Direct 70 mg/dL
[2024-11-22 11:49] LABS: Hemoglobin A1C 5.9 % (<5.7)
[2024-11-22 11:55] LABS: Thyroid Stimulating Hormone 0.949 uIU/mL (0.465-4.680)
[2024-11-22 12:31] LABS: Need Manual Microscopic Reviewed
== END 2024-11-22 08:01 | disposition home or self-care (01) ==
LOC: ANHGOSHLAB 08:01
PROVIDERS: PCP Family Medicine; Visit Provider Physician Assistant Medical
DX: D50.9 Iron deficiency anemia, unspecified (principal); I10 Essential (primary) hypertension; R73.01 Impaired fasting glucose; R79.89 Other specified abnormal findings of blood chemistry
CPT/HCPCS: 36415; 80053; 80061; 81001; 83036; 84443; 85027; 87086

== ENCOUNTER 2025-01-03 10:14 | Outpatient (CLI) | payer MEDICARE, SELFPAY ==
--- NOTE | ~2025-01-03 | DEXA_ITS ---
Bone Density Report Name: EDILSON MENDOZA Age: 79 Sex: Female Ethnicity: White Date of : 1945 Indication: postmenopausal; screening for osteoporosis; Referring Provider: ELROY DOUGLASS Study: Bone densitometry was performed. Exam Date: January 03, 2025 Accession number: [id number] Bone Density: Region BMD T-score Z-score Classification AP Spine(L1-L4) 1.246 1.8 4.5 Normal Femoral Neck (Left) 0.642 -1.9 0.5 Osteopenia Total Hip (Left) 0.849 -0.8 1.4 Normal Femoral Neck (Right) 0.711 -1.2 1.1 Osteopenia Total Hip (Right) 0.877 -0.5 1.6 Normal Total Hip Mean 0.863 -0.7 1.5 Normal World Health Organization criteria for BMD impression classify patients as: Normal (T-score at or above -1.0), Osteopenia (T-score between -1.0 and -2.5), or Osteoporosis (T-score at or below -2.5). 10-year Fracture Risk(1): Major Osteoporotic Fracture 15% Hip Fracture 4.1% Reported Risk Factors: [place] (), Neck BMD=0.642, BMI=29.3 (1) FRAX(R) Version 3.08. Fracture probability calculated for an untreated patient. Fracture probability may be lower if the patient has received treatment. Previous Exams: -- Region Exam Age BMD T-score BMD Change BMD Change Date g/cm2 vs Baseline vs Previous -- AP Spine (L1-L4) 01/03/2025 79 1.246 1.8 36.2%* 5.6%* 06/30/2022 76 1.180 1.2 29.0%* 29.0%* 09/17/2007 61 0.915 -1.2 Total Hip(Left) 01/03/2025 79 0.849 -0.8 6.3%* 0.5% 06/30/2022 76 0.845 -0.8 5.8%* 5.8%* 09/17/2007 61 0.799 -1.2 Total Hip(Right) 01/03/2025 79 0.877 -0.5 7.7%* -1.2% 06/30/2022 76 0.888 -0.4 9.0%* 9.0%* 09/17/2007 61 0.814 -1.0 -- *Denotes significance at 95% confidence level, LSC for AP Spine = 0.022 g/cm2, LSC for Total Hip = 0.027 g/cm2 Clinical Information Provided by Patient: Has used the following medications: Vitamin D, Calcium Patient maximum height was 63 Menopause Age: 43 No regular weight bearing exercise Drinks caffeinated beverages Onset of menses at age 11 Number of children 2 Impression: The patient has low bone mass, based on the Left Femoral Neck T-score. The patient has an estimated ten-year risk of hip fracture of 4.1% and an estimated ten-year risk of major fracture of 15%, based on the WHO FRAX algorithm. No significant bone loss was observed. Discussion: BONE DENSITY IS LOW AT ONE OR MORE SKELETAL SITES. THE PATIENT'S BMD AND CLINICAL RISK FACTORS CONTRIBUTE TO THIS PATIENT'S INCREASED RISK OF FRACTURE. This patient's lowest T-score is low at one or more skeletal sites. It meets the World Health Organization's (WHO) criteria for ?low bone mass? (T-score between -1.0 and -2.5). The patient's 10-year risk of hip fracture as calculated by FRAX exceeds the threshold where pharmacological therapy is recommended by the National Osteoporosis Foundation (NOF). However, all treatment decisions require clinical judgment and consideration of individual patient factors, including patient preferences, comorbidities, previous drug use, risk factors not captured in the FRAX model (e.g., frailty, falls, vitamin D deficiency, increased bone turnover, interval significant decline in bone density) and possible under or overestimation of fracture risk by FRAX. The patient should follow a healthful lifestyle (good nutrition with adequate calcium and vitamin D, and appropriate weight-bearing exercise). Follow-Up: Consider a repeat BMD and Vertebral Fracture Assessment (VFA) exam in 2 years or sooner if medically necessary, to reassess this patient's status. Reported by: POLLY on 01/03/2025 10:39:00 AM. Reviewed, dictated and finalized at location A.
== END 2025-01-03 10:15 | disposition home or self-care (01) ==
LOC: MICIMG 10:15
PROVIDERS: PCP Family Medicine; Visit Provider Physician Assistant Medical
DX: Z78.0 Asymptomatic menopausal state (principal); M85.80 Other specified disorders of bone density and structure, unspecified site; M85.852 Other specified disorders of bone density and structure, left thigh; M85.851 Other specified disorders of bone density and structure, right thigh
CPT/HCPCS: 77080

== ENCOUNTER 2025-05-30 08:30 | Outpatient (CLI) | payer MEDICARE, SELFPAY ==
[2025-05-30 19:24] LABS: Alanine Aminotransferase 23 U/L (6-35); Albumin Level 4.3 g/dL (3.5-5.1); Alkaline Phosphatase 57 U/L (38-126); Anion Gap 9 mmol/L (4-12); Aspartate Amino Transferase 61 U/L (14-36); Bilirubin,Total 0.7 mg/dL (0.2-1.3); Blood Urea Nitrogen 24 mg/dL (7-17); Calcium 9.9 mg/dL (8.4-10.2); Carbon Dioxide 25 mmol/L (22-30); Chloride 95 mmol/L (98-107); Estimated Glomerular Filt Rate 51; Glucose 81 mg/dL (65-110); Potassium 4.0 mmol/L (3.4-5.0); Sodium 129 mmol/L (137-145); Total Protein 7.2 g/dL (6.3-8.2)
[2025-05-30 20:15] LABS: Hemoglobin A1C 5.7 % (<5.7)
== END 2025-05-30 08:31 | disposition home or self-care (01) ==
PROVIDERS: PCP Family Medicine; Visit Provider Physician Assistant Medical
DX: R73.01 Impaired fasting glucose (principal); I10 Essential (primary) hypertension; E78.5 Hyperlipidemia, unspecified
CPT/HCPCS: 36415; 80053; 83036